=== PATIENT | male | born 1975 | race Two or more races ===

== ENCOUNTER 2022-01-22 13:30 | Emergency (ER) | payer SELFPAY ==
[~2022-01-22] VITALS: Ht 170.2 cm; Wt 86.1 kg
[2022-01-22 14:00] VITALS: BP 135/71
[2022-01-22] MEDS ORDERED: DOCU-109 PO (14:36)
[2022-01-22] MEDS ORDERED: HYDR25SU18 RC (14:36)
--- NOTE | 2022-01-22 14:37 | PHYS DOC ---
Past Medical History Past Surgical History: No Surgical History General Adult EDM: Chief Complaint: OTHER COMPLAINTS HPI: HPI: Patient is a 46 year old male who presents with states he had a hard bowel movement states he had gone for a trip for 12 hours and 12 hours back yesterday and he started having rectal pain. He states he had a normal bowel movement today without any kind of blood and he had some pain at his rectum. He states that he thought he felt a very small little bulge on the outside of his rectum. Patient is concerned because his father has had colon cancer in the past. He denies abdominal pain, fever, rectal discharge, blood in his stool, nausea, vomiting, diarrhea, back pain, chest pain, shortness of air. He states he does have constipation issues. Review of Systems: Review of Systems: Constitutional: Denies fever or chills. [] Eyes: Denies change in visual acuity. [] HENT: Denies nasal congestion or sore throat. [] Respiratory: Denies cough or shortness of breath. [] Cardiovascular: Denies chest pain or edema. [] GI: Denies abdominal pain, nausea, vomiting, bloody stools or diarrhea. + Rectal pain [] : Denies dysuria. [] Musculoskeletal: Denies back pain or joint pain. [] Integument: Denies rash. [] Neurologic: Denies headache, focal weakness or sensory changes. [] Endocrine: Denies polyuria or polydipsia. [] Lymphatic: Denies swollen glands. [] Psychiatric: Denies depression or anxiety. [] Heart Score: C/O Chest Pain: No Physical Exam: PE: Constitutional: Well developed, well nourished, no acute distress, non-toxic appearance. [] HENT: Normocephalic, atraumatic, bilateral external ears normal, oropharynx moist, no oral exudates, nose normal. [] Eyes: PERRLA, EOMI, conjunctiva normal, no discharge. [] Neck: Normal range of motion, no tenderness, supple, no stridor. [] Cardiovascular:Heart rate regular rhythm, no murmur [] Lungs & Thorax: Bilateral breath sounds clear to auscultation [] Abdomen: Bowel sounds normal, soft, no tenderness, no masses, no pulsatile masses. [] Skin: Warm, dry, no erythema, no rash. [] Back: No tenderness, no CVA tenderness. [] Extremities: No tenderness, no cyanosis, no clubbing, ROM intact, no edema. [] Neurologic: Alert and oriented X 3, normal motor function, normal sensory function, no focal deficits noted. [] Psychologic: Affect normal, judgement normal, mood normal. [] Normal physical exam Current Patient Data: Vital Signs: Vital Signs Date Time Temp Pulse Resp B/P (MAP) Pulse Ox O2 Delivery O2 Flow Rate FiO2 01/22/22 14:00 98.2 95 18 135/71 (92) 97 Room Air 98.2 EKG: EKG: [] Radiology/Procedures: Radiology/Procedures: [] Course & Med Decision Making: Course & Med Decision Making Pertinent Labs and Imaging studies reviewed. (See chart for details) See HPI. Alert and oriented x4. Ambulatory steady gait. Skin pink warm and dry. Afebrile. Abdomen soft and nontender. Denies any kind of back pain or numbness and tingling. Denies loss of bowel or bladder. Rectal exam was normal. There was no mass, blood on my finger, rectal di scharge, tunneling or abscess. No external hemorrhoids seen. There was no pain with exam. Rectal Exam: Normal tone, No mass, Positive control Stool: Brown Guaiac: NA [] Dragon Disclaimer: Dragon Disclaimer: This electronic medical record was generated, in whole or in part, using a voice recognition dictation system. Departure Departure Impression: Primary Impression: Rectal or anal pain Disposition: HOME / SELF CARE / HOMELESS Condition: STABLE Referrals: NO PCP (PCP) DA WICK MD Patient Instructions: Hemorrhoids Additional Instructions: Use medication as prescribed. Follow-up with your primary care doctor as soon as possible. I have also given you the number for our GI doctors office. Drink plenty of water. If you begin having abdominal pain, vomiting, diarrhea, blood from your rectum or in your stool return to emergency room. Scripts Docusate Sodium (COLACE) 100 Mg Capsule 1 CAP PO BID for 15 Days, #30 CAP 0 Refills Prov: SANDRA TRENT [employer] 01/22/22 Hydrocortisone Acetate (ANUSOL-HC) 25 Mg Supp.rect 1 SUPP RC BID for 7 Days, #14 SUPP 0 Refills Prov: SANDRA TRENT [employer] 01/22/22 SANDRA TRENT APRN January 22, 2022 14:37
== END 2022-01-22 14:30 | disposition home or self-care (01) ==
LOC: ER 13:30
DX: K62.89 Other specified diseases of anus and rectum (principal)
CPT/HCPCS: 99282